=== PATIENT | male | born 1965 | race Caucasian/White ===

== ENCOUNTER 2018-09-09 13:01 | Day surgery (SDC) | payer SELFPAY ==
[2018-09-09] VITALS (7 sets, daily range): BP systolic 103–139; BP diastolic 62–97; PULSE 49–66; TEMP 98.2–98.3
[~2018-09-09] VITALS: Ht 167.6 cm; Wt 71.0 kg
[~2018-09-09 13:01] MED LIST: NO HOME MEDICATIONS
--- NOTE | 2018-09-09 15:10 | NUR ---
Patient returned to [facility]. Patient arouses to verbal stimuli, but remains very drowsy. Able to stand pivot to recliner. Vital signs obtained, WNL. at bedside. Will continue to monitor closely.
--- NOTE | 2018-09-09 15:25 | NUR ---
Patient remains drowsy at this time. Does answer appropriatly to questions. Few sips of water taken. Vital signs obtained, WNL. and RN at bedside. Will continue to monitor.
--- NOTE | 2018-09-09 15:40 | NUR ---
Patient remains drowsy at this time. MD in room, aware of level of sedation. Instructed to continue to monitor. Vital signs WNL. Tolerating sips of water. Will continue to monitor.
--- NOTE | 2018-09-09 15:55 | NUR ---
Patient is slowly becoming more alert. Several sips of water and bites of muffin taken. Tolerating well. remains at bedside. All safety maintained, will continue to monitor.
--- NOTE | 2018-09-09 16:55 | NUR ---
MD made aware of level of sedation. Patient alert and oriented. But remains slightly drowsy. MD states that he may go home. IV removed. Discharge instructions reviewed with patient and .
--- NOTE | 2018-09-09 17:01 | NUR ---
Patient wheeled down to lobby. to drive him home
== END 2018-09-09 17:01 | disposition home or self-care (01) ==
LOC: SDCO 13:01
DX: Z12.11 Encounter for screening for malignant neoplasm of colon (principal); K50.00 Crohn's disease of small intestine without complications; Z88.0 Allergy status to penicillin; K21.0 Gastro-esophageal reflux disease with esophagitis; K22.70 Barrett's esophagus without dysplasia; Z88.1 Allergy status to other antibiotic agents
CPT/HCPCS: C1726; J2250; J3010; J7030

== ENCOUNTER 2019-04-01 18:04 | Emergency (ER) | payer SELFPAY ==
[~2019-04-01] VITALS: Ht 167.6 cm; Wt 68.2 kg
[2019-04-01 18:12] VITALS: BP 140/92; TEMP 98.3
[2019-04-01 19:41] LABS: BASO % 0.4 % (0.0-2.0); EOS # 0.4 (0.0-0.7); EOS % 3.4 % (0-4.0); GRAN # 7.4 (1.4-6.5); GRAN % 65.4 % (42.2-75.2); HEMATOCRIT 46.7 % (42.0-52.0); HEMOGLOBIN 15.5 g/dl (13.5-18.0); LYMPH # 2.2 (1.2-3.4); LYMPH % 19.3 % (20.0-51.0); MEAN CELL VOLUME 90 fl (80.0-100.0); MEAN CORPUSCULAR HEMOGLOBIN 30 pg (27.0-31.0); MEAN CORPUSCULAR HGB CONC 33 g/dl (33.0-37.0); MEAN PLATELET VOLUME 10.4 fl (7.4-10.4); MONO # 1.2 (0.1-0.6); MONO % 10.9 % (1.7-9.3); PLATELET COUNT 198 K/mm3 (130-400); REDCELL DISTRIBUTION WIDTH-CV 12.6 % (11.5-14.5)
[2019-04-01 20:00] LABS: CALCIUM 9.2 mg/dL (8.4-10.2); CREATININE, serum 1.06 (0.66-1.25); POTASSIUM 4.1 mmol/L (3.4-5.0)
[2019-04-01] MEDS ORDERED: ELIQUIS 5MG PO (20:22)
[2019-04-01 20:40] VITALS: PULSE 74
== END 2019-04-01 20:38 | disposition home or self-care (01) ==
LOC: COL.ER 18:04
PROVIDERS: Emergency Medicine
DX: I82.421 Acute embolism and thrombosis of right iliac vein (principal); Z79.01 Long term (current) use of anticoagulants; Z87.81 Personal history of (healed) traumatic fracture